=== PATIENT | female | born 1970 | race Caucasian/White ===

== ENCOUNTER → 2020-07-20 | Outpatient (CLI) | payer BC | LOC: LAB 12:52 → RAD 12:52 | DX: M79.89 Other specified soft tissue disorders (principal) ==

== ENCOUNTER → 2021-02-08 | Outpatient (CLI) | payer BC | LOC: RAD 07:45 | DX: R10.30 Lower abdominal pain, unspecified (principal); Z98.82 Breast implant status | CPT/HCPCS: Q9967 ==

== ENCOUNTER → 2022-03-22 | Outpatient (CLI) | payer BC | LOC: RAD 15:30 → VAS 15:30 | DX: M79.662 Pain in left lower leg (principal); M79.89 Other specified soft tissue disorders ==